=== PATIENT | female | born 1960 | race Caucasian/White ===

== ENCOUNTER 2017-12-26 14:19 | Emergency (ER) | payer MEDICAID ==
[2017-12-26] MEDS ORDERED: OXYCODONE HCL/APAP 5MG/325MG TABLET PO ONE (14:48)
--- NOTE | 2017-12-26 15:07 | Emergency Department Record ---
History of Present Illness - General Chief Complaint: Ankle/Foot Injury Stated Complaint: RT ANKLE SWELLING /PAIN,STEPPED IN HOLE Time Seen by Provider: 12/26/17 14:41 Source: Patient, RN notes reviewed Mode of Arrival: Ambulatory - History of Present Illness Initial Comments: patient stepped in a hole 30 minutes prior to arrival with pain lateral right ankle. She heard a pop. No other injuries. MD Complaint: Ankle injury Onset/Timin -: Minutes(s) Type of Injury: Eversion Place: Street/outdoors Severity: Moderate Severity scale (1-10): 6 Improves With: Nothing Worsens With: Weight bearing Context: Walking Associated Symptoms: Snap/pop sensation, Able to partially bear weight - Related Data Previous Rx's Medication Instructions Recorded Oxycodone HCl/Acetaminophen 1 tab PO Q6H PRN #14 tab 12/26/17 [Percocet 5mg/325mg] Allergies Allergy/AdvReac Type Severity Reaction Status Date / Time No Known Drug Allergies Allergy Verified 12/26/17 14:36 Travel Screening - Travel/Exposure Within Last 30 Days Have you traveled within the last 30 days?: No Review of Systems Reviewed: No additional complaints except as noted below Constitutional: Reports: As per HPI. Denies: Chills, Fever, Malaise, Night sweats, Weakness, Weight change Eyes: Reports: As per HPI. Denies: Eye discharge, Eye pain, Photophobia, Vision change ENT: Reports: As per HPI. Denies: Congestion, Dental pain, Ear pain, Epistaxis , Hearing loss, Throat pain Respiratory: Reports: As per HPI. Denies: Cough, Dyspnea, Hemoptysis, Stridor, Wheezes Cardiovascular: Reports: As per HPI. Denies: Arrhythmia, Chest pain, Dyspnea on exertion, Edema, Murmurs, Orthopnea, Palpitations, Paroxysmal nocturnal dyspnea, Rheumatic Fever, Syncope Endocrine: Reports: As per HPI. Denies: Fatigue, Heat or cold intolerance, Polydipsia, Polyuria Gastrointestinal: Reports: As per HPI. Denies: Abdominal pain, Constipation, Diarrhea, Hematemesis, Hematochezia, Melena, Nausea, Vomiting Genitourinary: Reports: As per HPI. Denies: Abnormal menses, Discharge, Dyspareunia, Dysuria, Frequency, Hematuria, Incontinence, Retention, Urgency Musculoskeletal: Reports: As per HPI, Other (right ankle pain). Denies: Arthralgia, Back pain, Gout, Joint swelling, Myalgia, Neck pain Skin: Reports: As per HPI. Denies: Bruising, Change in color, Change in hair/ nails, Lesions, Pruritus, Rash Neurological: Reports: As per HPI. Denies: Abnormal gait, Confusion, Headache, Numbness, Paresthesias, Seizure, Tingling, Tremors, Vertigo, Weakness Psychiatric: Reports: As per HPI. Denies: Anxiety, Auditory hallucinations, Depression, Homicidal thoughts, Suicidal thoughts, Visual hallucinations Hematological/Lymphatic: Reports: As per HPI. Denies: Anemia, Blood Clots, Easy bleeding, Easy bruising, Swollen glands Past Medical History - SOCIAL HISTORY Smoking Status: Former smoker Alcohol Use: None Drug Use: None - RESPIRATORY Hx Respiratory Disorders: No - CARDIOVASCULAR Hx Cardio Disorders: No - NEURO Hx Neuro Disorders: No - GI Hx GI Disorders: No - Hx Genitourinary Disorders: Yes Hx Kidney Stones: Yes - ENDOCRINE Hx Endocrine Disorders: Yes Hx Thyroid Disease: Yes (hypo) - MUSCULOSKELETAL Hx Musculoskeletal Disorders: Yes Hx Arthritis: Yes - PSYCH Hx Psych Problems: No - HEMATOLOGY/ONCOLOGY Hx Hematology/Oncology Disorders: No Family Medical History Any Significant Family History?: Yes Hx Heart Disease: Father, Children Hx HTN: Mother Physical Exam - General General Appearance: Alert, Oriented x3, Cooperative, No acute distress - Head Head exam: Normal inspection - Eye Eye exam: Normal appearance, PERRL Pupils: Normal accommodation - ENT ENT exam: Normal exam, Mucous membranes moist, Normal external ear exam, Normal orophraynx, TM's normal bilaterally Ear exam: Normal external inspection. negative: External canal tenderness Nasal Exam: Normal inspection. negative: Discharge, Sinus tenderness Mouth exam: Normal external inspection, Tongue normal Teeth exam: Normal inspection. negative: Dental caries Throat exam: Normal inspection. negative: Tonsillar erythema, Tonsillar exudate - Neck Neck exam: Normal inspection, Full ROM. negative: Tenderness - Respiratory Respiratory exam: Normal lung sounds bilaterally. negative: Respiratory distress - Cardiovascular Cardiovascular Exam: Regular rate, Normal rhythm, Normal heart sounds - GI/Abdominal GI/Abdominal exam: Soft, Normal bowel sounds. negative: Tenderness - Rectal Rectal exam: Deferred - exam: Deferred - Extremities Extremities exam: Normal capillary refill, Tenderness (right lateral ankle pain, neuro vascular intact) - Back Back exam: Reports: Normal inspection, Full ROM. Denies: Muscle spasm, Rash noted, Tenderness - Neurological Neurological exam: Alert, Normal gait, Oriented X3, Reflexes normal - Psychiatric Psychiatric exam: Normal affect, Normal mood - Skin Skin exam: Dry, Intact, Normal color, Warm Course Vital Signs 12/26/17 14:39 Temperature 98.7 F Pulse Rate 82 Respiratory 18 Rate Blood Pressure 106/57 Pulse Ox 95 Medical Decision Making - Data Complexity MDM Data: X-Ray Ordered and/or Reviewed (distal nondisplaced fibular fracture) Disposition Clinical Impression: Ankle fracture Qualifiers: Encounter type: initial encounter Fracture type: closed Laterality: right Qualified Code(s): S82.891A - Other fracture of right lower leg, initial encounter for closed fracture Disposition: Home, Self-Care Condition: (1) Good Instructions: Ankle Fracture (ED) Additional Instructions: elevate foot and follow up with Dr. Stein in one week. Prescriptions: Oxycodone HCl/Acetaminophen [Percocet 5mg/325mg] 1 tab PO Q6H PRN #14 tab PRN Reason: Analgesia Forms: Patient Portal Access Time of Disposition: 15:32 Quality - Quality Measures Quality Measures: N/A - Blood Pressure Screening Does Patient Have Any of the Following: No Blood Pressure Classification: Normal BP Reading Systolic Measurement: 106 Diastolic Measurement: 57 Screening for High Blood Pressure: < Normal BP, F/U Not Required > [G8783]
--- NOTE | 2017-12-28 23:16 | RADIOLOGY REPORT ---
EXAM: ANKLE RIGHT 3 VIEWS HISTORY: TWISTED ANKLE IN A HOLE ONE DAY AGO WITH ANKLE PAIN. TECHNIQUE: Three views right ankle. COMPARISON: None. ENCOUNTER: Initial. FINDINGS: There is an essentially transverse minimally displaced fracture of the distal fibula. Overlying soft tissue swelling. No definite associated tibial fracture identified. No dislocation at the ankle. Moderate plantar calcaneal spur. IMPRESSION: 1. TRANSVERSE MINIMALLY DISPLACED FRACTURE DISTAL FIBULA WITH OVERLYING SOFT TISSUE SWELLING. 2. PROMINENT PLANTAR CALCANEAL SPUR. JOB NUMBER: [id number] [facility]
== END 2017-12-26 16:03 | disposition home or self-care (01) ==
LOC: ER 14:19
DX: S82.891A Other fracture of right lower leg, initial encounter for closed fracture (principal); X50.0XXA Overexertion from strenuous movement or load, initial encounter; Y92.410 Unspecified street and highway as the place of occurrence of the external cause; Z87.891 Personal history of nicotine dependence
CPT/HCPCS: 99283

== ENCOUNTER 2018-04-19 16:46 | Emergency (ER) | payer MEDICAID ==
[2018-04-19] MEDS ORDERED: PREDNISONE 20 MG TAB PO ONE (17:31)
[2018-04-19] MEDS ORDERED: AZITHROMYCIN 500 MG TABLET PO ONE (17:31)
[2018-04-19] MEDS ORDERED: IPRATROPIUM/ALBUTEROL (0.5MG/3MG) NEB INH ONE (17:31)
--- NOTE | 2018-04-19 17:37 | Emergency Department Record ---
History of Present Illness - General Stated Complaint: BAD COUGH/ COLD Time Seen by Provider: 04/19/18 17:30 Source: Patient Mode of Arrival: Ambulatory Limitations: No limitations - History of Present Illness Initial Comments: 57 yo female presents with a productive cough for about one week. She has some thick yellow sputum. She is a smoker. She has a nebulizer but the hose is broken. No fevers. No chest pain. She has nasal congestion as well. No nausea, vomiting or diarrhea. No abdominal pain. NO leg swelling or edema. MD Complaint: Cough -: Week(s) (1) Severity: Moderate Quality: Aching Consistency: Constant Worsens With: Nothing, Other (Nebulizer broke) Known History Of: COPD, Other (Smoker) Context: Recent URI Associated Symptoms: Denies other symptoms, Cough Treatments Prior to Arrival: None - Related Data Previous Rx's Medication Instructions Recorded Azithromycin [Zithromax] 250 mg PO DAILY #4 tab 04/19/18 Benzonatate [Tessalon] 1 cap PO Q8H PRN #20 cap 04/19/18 Prednisone [Prednisone 20Mg] 20 mg PO BID #10 tab 04/19/18 Allergies Allergy/AdvReac Type Severity Reaction Status Date / Time No Known Drug Allergies Allergy Verified 12/26/17 14:36 Review of Systems Constitutional: Denies: Chills, Fever, Malaise, Weakness Eyes: Denies: Eye discharge ENT: Reports: Congestion. Denies: Throat pain Respiratory: Reports: Cough. Denies: Wheezes Cardiovascular: Denies: Chest pain, Dyspnea on exertion, Edema, Palpitations, Syncope Endocrine: Denies: Fatigue Gastrointestinal: Denies: Abdominal pain, Diarrhea, Nausea, Vomiting Genitourinary: Denies: Dysuria, Urgency Musculoskeletal: Denies: Arthralgia, Back pain, Myalgia Skin: Denies: Bruising, Change in color, Rash Neurological: Denies: Headache Psychiatric: Denies: Anxiety Hematological/Lymphatic: Denies: Easy bleeding, Easy bruising Past Medical History - SOCIAL HISTORY Smoking Status: Former smoker Drug Use: None - RESPIRATORY Hx Respiratory Disorders: No - CARDIOVASCULAR Hx Cardio Disorders: No - NEURO Hx Neuro Disorders: No - GI Hx GI Disorders: No - Hx Genitourinary Disorders: Yes Hx Kidney Stones: Yes - ENDOCRINE Hx Endocrine Disorders: Yes Hx Thyroid Disease: Yes (hypo) - MUSCULOSKELETAL Hx Musculoskeletal Disorders: Yes Hx Arthritis: Yes - PSYCH Hx Psych Problems: No - HEMATOLOGY/ONCOLOGY Hx Hematology/Oncology Disorders: No Family Medical History Hx Heart Disease: Father, Children Hx HTN: Mother Physical Exam - General General Appearance: Alert, Oriented x3, Cooperative, No acute distress Limitations: No limitations - Head Head exam: Atraumatic, Normal inspection - Eye Eye exam: Normal appearance. negative: Conjunctival injection - ENT ENT exam: Normal exam, Mucous membranes moist Ear exam: Normal external inspection Nasal Exam: Normal inspection Mouth exam: Normal external inspection Teeth exam: Normal inspection Throat exam: Normal inspection. negative: Tonsillar erythema - Neck Neck exam: Normal inspection. negative: Lymphadenopathy, Tenderness - Respiratory Respiratory exam: Decreased breath sounds, Prolonged expiratory, Rhonchi, Wheezes. negative: Normal lung sounds bilaterally - Cardiovascular Cardiovascular Exam: Regular rate, Normal rhythm, Normal heart sounds - GI/Abdominal GI/Abdominal exam: Soft. negative: Tenderness - Rectal Rectal exam: Deferred - exam: Deferred - Extremities Extremities exam: Normal inspection. negative: Pedal edema - Back Back exam: Denies: CVA tenderness (R), CVA tenderness (L) - Neurological Neurological exam: Alert, Oriented X3 - Psychiatric Psychiatric exam: negative: Agitated, Anxious - Skin Skin exam: Dry, Intact, Normal color, Warm Course - Reevaluation(s) Reevaluation #1: CXR was signed out to Dr Thornton with anticipation of DC home on antibiotics, inhaler, and steroids 04/19/18 18:35 Disposition Disposition: Discharge Clinical Impression: Bronchitis, Wheezing Disposition: Home, Self-Care Condition: (1) Good Instructions: Acute Bronchitis (ED) Additional Instructions: Take the prescriptions provided today as directed. Call your family doctor. Call to schedule the next available appointment for a recheck. Return to ED if your symptoms worsen or if you have any new concerns. Review the final Emergency Record and test results with your doctor on follow up Prescriptions: Azithromycin [Zithromax] 250 mg PO DAILY #4 tab Benzonatate [Tessalon] 1 cap PO Q8H PRN #20 cap PRN Reason: Cough Prednisone [Prednisone 20Mg] 20 mg PO BID #10 tab Forms: Patient Portal Access Time of Disposition: 19:00 Quality - Quality Measures Quality Measures: N/A - Blood Pressure Screening Does Patient Have Any of the Following: No Blood Pressure Classification: Pre-Hypertensive BP Reading Systolic Measurement: 132 Diastolic Measurement: 84 Screening for High Blood Pressure: < Pre-Hypertensive BP, F/U Documented > [ G8950] Pre-Hypertensive Follow-up Interventions: Referral to alternative/primary care provider.
--- NOTE | 2018-04-22 09:49 | RADIOLOGY REPORT ---
EXAM: CHEST, TWO VIEWS HISTORY: PRODUCTIVE COUGH. TECHNIQUE: PA and lateral views of the chest were obtained. Comparison: Chest radiograph 06/27/16. FINDINGS: The cardiac silhouette is within normal size limits. No focal consolidation, pleural effusion, or pneumothorax. No definite acute osseous findings. IMPRESSION: NO ACUTE LUNG FINDINGS. JOB NUMBER: [id number] [facility]
== END 2018-04-19 19:03 | disposition home or self-care (01) ==
LOC: ER 16:46
DX: J20.9 Acute bronchitis, unspecified (principal); R06.2 Wheezing; J44.9 Chronic obstructive pulmonary disease, unspecified; F17.210 Nicotine dependence, cigarettes, uncomplicated
CPT/HCPCS: 99283; 99284; 71046; 94640; J7512

== ENCOUNTER 2018-04-23 00:04 | Emergency (ER) | payer MEDICAID ==
[2018-04-23] MEDS ORDERED: ACETAMINOPHEN 1,000 MG/100 ML BTL IVPB ONE (00:25)
[2018-04-23 00:27] LABS: URINE APPEARANCE CLOUDY; URINE BILIRUBIN NEGATIVE (NEGATIVE); URINE BLOOD LARGE (NEGATIVE); URINE COLOR YELLOW; URINE GLUCOSE (UA) NEGATIVE (NEGATIVE); URINE KETONE NEGATIVE (NEGATIVE); URINE LEUKOCYTE ESTERASE LARGE (NEGATIVE); URINE NITRITE NEGATIVE (NEGATIVE); URINE UROBILINOGEN 0.2 E.U./dL (0.20 - 1.00)
[2018-04-23] MEDS ORDERED: 0.9 % SODIUM CHLORIDE 1000ML 1,000 ML IV SCH (00:30)
--- NOTE | 2018-04-23 00:31 | Emergency Department Record ---
History of Present Illness - General Chief complaint: Flank Pain Stated complaint: FLANK PAIN Time Seen by Provider: 04/23/18 00:05 Source: Patient Mode of Arrival: Ambulatory Limitations: No limitations - History of Present Illness Initial comments: 57 yo female presents to ED for evaluation of dysuria symptoms that began 2 days ago. Patient denies fevers, chills, nausea, or vomiting symptoms, but does report a previous history of kidney stones x 2 requiring lithotripsy and percutaneous drainage. Patient reports that her symptoms are worse on her left side. MD Complaint: Other (flank pain) Onset/Timin -: Days(s) Radiation: Non-radiating Severity: Moderate Quality: Aching Consistency: Constant Improves with: None Worsens with: None Patient : No Associated Symptoms: Dysuria - Related Data Previous Rx's Medication Instructions Recorded Azithromycin [Zithromax] 250 mg PO DAILY #4 tab 04/19/18 Benzonatate [Tessalon] 1 cap PO Q8H PRN #20 cap 04/19/18 Prednisone [Prednisone 20Mg] 20 mg PO BID #10 tab 04/19/18 Allergies Allergy/AdvReac Type Severity Reaction Status Date / Time Iodinated Contrast- Oral and Allergy PT UNSURE Verified 04/23/18 00:31 IV Dye OF REACTION Review of Systems Constitutional: Denies: Chills, Fever, Malaise, Night sweats Eyes: Denies: Eye discharge, Eye pain ENT: Denies: Congestion, Ear pain, Epistaxis Respiratory: Reports: Cough. Denies: Dyspnea Cardiovascular: Denies: Chest pain, Dyspnea on exertion Endocrine: Denies: Fatigue, Heat or cold intolerance Gastrointestinal: Denies: Abdominal pain, Nausea, Vomiting Genitourinary: Reports: Dysuria. Denies: Incontinence, Retention Musculoskeletal: Reports: Back pain. Denies: Arthralgia, Gout, Joint swelling Skin: Denies: Bruising, Change in color Neurological: Denies: Abnormal gait, Confusion, Headache, Seizure Psychiatric: Denies: Anxiety Hematological/Lymphatic: Denies: Anemia, Blood Clots Past Medical History - SOCIAL HISTORY Smoking Status: Former smoker Drug Use: None - RESPIRATORY Hx Respiratory Disorders: No - CARDIOVASCULAR Hx Cardio Disorders: No - NEURO Hx Neuro Disorders: No - GI Hx GI Disorders: No - Hx Genitourinary Disorders: Yes Hx Kidney Stones: Yes - ENDOCRINE Hx Endocrine Disorders: Yes Hx Thyroid Disease: Yes (hypo) - MUSCULOSKELETAL Hx Musculoskeletal Disorders: Yes Hx Arthritis: Yes - PSYCH Hx Psych Problems: No - HEMATOLOGY/ONCOLOGY Hx Hematology/Oncology Disorders: No Family Medical History Hx Heart Disease: Father, Children Hx HTN: Mother Physical Exam - General General Appearance: Alert, Oriented x3, Cooperative, Mild distress, Other ( Patient is conversational, well appearing on examination, and in no acute distress.) Limitations: No limitations - Head Head exam: Atraumatic, Normocephalic, Normal inspection Head exam detail: negative: Abrasion, Contusion, Rosales's sign, General tenderness, Hematoma, Laceration - Eye Eye exam: Normal appearance. negative: Conjunctival injection, Periorbital swelling, Periorbital tenderness, Scleral icterus - ENT Ear exam: negative: Auricular hematoma, Auricular trauma Nasal Exam: negative: Active bleeding, Discharge, Dried blood, Foreign body Mouth exam: negative: Drooling, Laceration, Muffled voice, Tongue elevation - Neck Neck exam: Normal inspection. negative: Meningismus, Tenderness - Respiratory Respiratory exam: Decreased breath sounds, Wheezes (Mild wheezes are present bilaterally). negative: Rales, Respiratory distress, Rhonchi, Stridor - Cardiovascular Cardiovascular Exam: Regular rate, Normal rhythm, Normal heart sounds - GI/Abdominal GI/Abdominal exam: Soft. negative: Rebound, Rigid, Tenderness - Rectal Rectal exam: Deferred - exam: Deferred - Extremities Extremities exam: Normal inspection. negative: Calf tenderness, Pedal edema, Tenderness - Back Back exam: Reports: CVA tenderness (L). Denies: CVA tenderness (R) - Neurological Neurological exam: Alert, Normal gait, Oriented X3 - Psychiatric Psychiatric exam: Normal affect, Normal mood - Skin Skin exam: Normal color. negative: Abrasion Type of lesion: negative: abrasion Course - Reevaluation(s) Reevaluation #1: 04/23/18 00:44 UA reviewed: 21-35 RBCs 36-50 WBCs 2+ Bacteria Rocephin ordered to infuse. Reevaluation #2: 04/23/18 01:04 Labs reviewed and are grossly unremarkable for an acute process except for: BUN 30/Creatinine 1.0 WBC 13.7 Reevaluation #3: 04/23/18 01:10 Patient is back from CT imaging, antibiotic started at this time. Patient reports that she is resting comfortably at this time. Reevaluation #4: 04/23/18 02:21 CT Abdomen and Pelvis: Bilateral nephrocalcinosis Moderate left hydronephrosis and hydroureter secondary to obstructed 10 mm ureteral calculous and distal left ureter 13 mm stone. Left nabor-renal and nabor-ureteral fat stranding. [facility] contacted for transfer. Reevaluation #5: 04/23/18 02:34 Case was discussed with Dr. Dowling at [facility], will accept transfer for urologic consultation at this time. Medical Decision Making - Lab Data Result diagrams: 04/23/18 00:33 04/23/18 00:33 Disposition Disposition: Transfer Clinical Impression: Infection of kidney, Ureteral calculus Disposition: Acute Care Hospital Transfer Transfer To: [facility] Reason For Transfer: Infected kidney stone Accepting Physician: Nitesh Time Discussed w/Accepting Physician: 02:30 Condition: (2) Stable Forms: Patient Portal Access Time of Disposition: 02:30 Quality - Quality Measures Quality Measures: N/A - Blood Pressure Screening Does Patient Have Any of the Following: No Blood Pressure Classification: Pre-Hypertensive BP Reading Systolic Measurement: 128 Diastolic Measurement: 66 Screening for High Blood Pressure: < Pre-Hypertensive BP, F/U Documented > [ G8950] Pre-Hypertensive Follow-up Interventions: Referral to alternative/primary care provider.
[2018-04-23 00:34] LABS: URINE BACTERIA 2+; URINE EPITHELIAL CELLS 0 - 2 (FEW); URINE RBC 21 - 35 (NONE SEEN); URINE WBC 36 - 50 (0-2/hpf)
[2018-04-23 00:41] LABS: BASO % 0.4 % (0-6); EOS % 0.5 % (0-6); GRAN % 67.8 % (47-80); HEMATOCRIT 42.7 % (35.0-47.0); HEMOGLOBIN 14.1 gm/dl (11.6-16.0); LYMPH % 23.5 % (16-45); MEAN CELL VOLUME 95.3 fl (81-97); MEAN CORPUSCULAR HEMOGLOBIN 31.5 pg (27-33); MEAN PLATELET VOLUME 11.1 fl (7.4-10.4); MONO % 7.8 % (0-9); PLATELET COUNT 248 K/uL (130-400); RED BLOOD COUNT 4.48 M/uL (3.80-5.40); RED CELL DISTRIBUTION WIDTH 12.8 % (11.5-14.5); WHITE BLOOD COUNT W/O DIFF 13.7 K/uL (4.2-12.2)
[2018-04-23] MEDS ORDERED: CEFTRIAXONE SODIUM 1 GM in 0.9 % SODIUM CHLORIDE 100ML 100 ML IVPB ONE (00:43)
[2018-04-23 00:50] LABS: BLOOD UREA NITROGEN 30 mg/dL (6-20); EST GLOMERULAR FILTRATION RATE > 60 mL/min
[2018-04-23 00:51] LABS: TOTAL PROTEIN 7.6 g/dL (6.6-8.7)
[2018-04-23 00:53] LABS: GLUCOSE,RANDOM 117 mg/dL (74-109)
[2018-04-23 00:55] LABS: ALT/SGPT 16 U/L (<33)
[2018-04-23 00:56] LABS: ALB/GLOB RATIO 1.2 (1.1-1.8); ALBUMIN 4.2 g/dL (4.0-5.0); ALKALINE PHOSPHATASE 57 U/L (35-104); AST/SGOT 14 U/L (10.0-35.0)
--- NOTE | 2018-04-25 13:31 | CT SCAN REPORT ---
EXAM: CT SCAN OF THE ABDOMEN AND PELVIS WITHOUT CONTRAST HISTORY: LEFT SIDED BACK PAIN AND FLANK PAIN FOR THE PAST THREE DAYS. PREVIOUS HISTORY OF KIDNEY STONES AND LITHOTRIPSY. TECHNIQUE: Standard CT imaging of the abdomen and pelvis were performed without contrast. Comparison: None. FINDINGS: The lung bases are clear. There is mild hepatomegaly and steatosis. There are no focal hepatic abnormalities. The gallbladder is surgically absent. There is no intra or extrahepatic biliary ductal dilatation. The pancreas, spleen, and adrenal glands are normal. There is bilateral medullary nephrocalcinosis. There are several nonobstructing stones within the right kidney, the largest of which measures 6 mm in maximal dimension. There is moderate left hydronephrosis. There is a 5 x 8 mm calculus within the proximal left ureter. There is a 12 x 7 mm calculus within the left ureterovesical junction. There are a few nonobstructing stones within the left kidney. The largest is located at the lower pole and measures 11 x 5 mm. The aorta is normal in caliber. There is no lymphadenopathy. The large and small bowel loops appear normal. There is no pneumoperitoneum or ascites. The uterus and adnexa are normal. The urinary bladder is unremarkable. Degenerative changes are present within the lumbar spine. There is minor chronic compression of the inferior end plate of the L1 vertebral body. No acute osseous abnormalities are identified. IMPRESSION: 1. 12 MM CALCULUS WITHIN THE LEFT URETEROVESICAL JUNCTION RESULTING IN MODERATE HYDRONEPHROSIS. AN 8 MM CALCULUS IS ALSO PRESENT WITHIN THE PROXIMAL LEFT URETER. 2. 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 3. ADDITIONAL CHRONIC FINDINGS ABOVE. [facility]: [id number] [facility]
== END 2018-04-23 03:54 | disposition short-term general hospital (02) ==
LOC: ER 00:04
DX: N13.6 Pyonephrosis (principal); R30.0 Dysuria; Z87.891 Personal history of nicotine dependence; Z87.442 Personal history of urinary calculi
CPT/HCPCS: 74176; 80053; 81001; 85025; 96374; 96375; 99285; J7030